=== PATIENT | female | born 1965 | race Caucasian/White ===

== ENCOUNTER 2017-05-29 17:29 | Inpatient (IN) ==
[2017-05-29 18:42] LABS: MANUAL DIFF NEEDED? NO
[2017-05-29 18:47] LABS: ALLEN TEST YES; BE 3.5 mmoll (-3.0-3.0); BLOOD TYPE ARTERIAL; DRAW SITE R RADIAL; METHB 1.1 % (0.0-1.5); O2(CT) 15.6 mL/dL (15.0-23.0); PCO2(98.6) 50 mmHg (35-45); PO2(98.6) 66 mmHg (60-100); SAMPLE BLOOD; SAO2 96.3 % (95.0-100.0); THB 12.9 g/dL (11.5-17.4); pH(98.6) 7.38 (7.35-7.45)
[2017-05-29 18:50] LABS: URINE CULTURE NEEDED? NO; URINE MICRO REVIEW NEEDED? NO; URINE SOURCE CLEAN CATCH
[2017-05-29 18:51] LABS: MODALITY ROOM AIR
[2017-05-29 18:56] LABS: BASO% 0.3 % (0.0-0.8); EOS# 0.23 X1000 (0.0-0.7); EOS% 3.8 % (0.0-10.0); HEMATOCRIT 39.4 % (42.0-52.0); HEMOGLOBIN 13.4 g/dL (14.0-18.0); IMM GRAN# 0.02 X1000 (0.0-0.04); IMM GRAN% 0.3 % (0.0-0.5); LYMPH# 1.66 X1000 (1.2-3.4); LYMPH% 27.2 % (20.5-51.1); MCH 30.5 PG (27-31); MCV 89.7 FL (81-99); MONO# 0.72 X1000 (0.11-0.59); MONO% 11.8 % (1.7-9.3); MPV 9.6 FL (7.4-10.4); NEUT% 56.6 % (42.2-75.2); PLT 280 X1000 (130-400); RBC 4.39 XMIL (4.7-6.1)
[2017-05-29 18:58] LABS: BILIRUBIN URINE NEGATIVE (NEGATIVE); BLOOD URINE NEGATIVE (NEGATIVE); COLOR YELLOW; GLUCOSE URINE NEGATIVE (NEGATIVE); LEUKOCYTES URINE NEGATIVE (NEGATIVE); NITRITE URINE NEGATIVE (NEGATIVE); PH URINE 6.5; PROTEIN URINE TRACE mg/dL (NEGATIVE); SP GRAVITY URINE 1.001; TURBIDITY URINE CLEAR (CLEAR); UROBILINOGEN URINE NORMAL (NORMAL)
[2017-05-29 18:59] LABS: UR EPITHELIAL CELLS <10 /HPF (<10); URINE BACTERIA NEGATIVE /HPF; URINE RBC <10 /HPF (<10); URINE WBC <10 /HPF (<10)
--- NOTE | 2017-05-29 19:04 | Diag Imaging Result Doc PS360 ---
EXAM: HEAD W/O CONTRAST TECHNIQUE: Dose reduction protocol was used. INDICATION: AMS COMPARISON: None. FINDINGS: There is a chronic lacunar infarct involving the left caudate head extending into the internal capsule. There is no definite acute infarct given the limited sensitivity of CT versus MRI. There is no discrete intracranial mass, mass effect, or intracranial hemorrhage. There is a subcutaneous nodule involving the posterior aspect of the neck on the left that probably represents a sebaceous cyst. Surrounding soft tissues and bony structures are essentially unremarkable, otherwise. IMPRESSION: Chronic changes as described. No evidence of acute intracranial pathology by CT. Electronically signed by Medardo Craven 05/29/2017 7:01 PM
[2017-05-29 19:07] LABS: INR 0.98; PROTIME 10.3 Seconds (9.2-11.7); PTT 31.5 Seconds (22.0-36.0)
[2017-05-29 19:21] LABS: UR AMPHETAMINES QUAL NONE DETECTED (NONE DETECT); UR BARBITUATES QUAL NONE DETECTED (NONE DETECT); UR BENZODIAZEPIN QUAL PRESUMPTIVE POSITIVE (NONE DETECT); UR CANNABINOIDS QUAL PRESUMPTIVE POSITIVE (NONE DETECT); UR COCAINE QUAL NONE DETECTED (NONE DETECT); UR METHADONE QUAL NONE DETECTED (NONE DETECT); UR OPIATES QUAL PRESUMPTIVE POSITIVE (NONE DETECT); UR OXYCODONE QUAL NONE DETECTED (NONE DETECT); UR PCP QUAL NONE DETECTED (NONE DETECT)
[2017-05-29] MEDS ORDERED: NICODERM PATCH TD ONE (19:52)
--- NOTE | 2017-05-29 19:52 | ED EKG INTERP ---
This chart was entered by Shana Gonzalez Scribe, acting as scribe for Stuart Cunha MD. EKG Interpretation - EKG Time of EKG reading by physician:: 17:39 EKG Read and Signed by:: Stuart Cunha EKG Interpretation (*Must complete 3 of following elements*): Normal Rate: 85 Rhythm: NSR with sinus arrhythmia Comments: Normal ECG This chart was documented by the indicated scribe, (Shana Gonzalez Scribe) and accurately reflects the services I performed and decisions made by me, Stuart Cunha MD, as attested by the provider's signature.
[2017-05-29 19:57] LABS: AGAP 14; ALBUMIN 4.3 g/dL (3.5-5.0); ALKALINE PHOSPHATASE 80 U/L (32-122); BUN 8 mg/dL (8-22); CALCIUM 9.6 mg/dL (8.8-10.2); CHLORIDE 78 mmol/L (98-107); CK PROFILE 174 U/L (24-204); COSMO 241; GOT 25 U/L (10-34); GPT 15 U/L (10-44); SODIUM 122 mmol/L (136-145); TCO2 28 mmol/L (25-35); TOTAL PROTEIN 7.3 g/dL (6.3-8.3)
--- NOTE | 2017-05-29 20:41 | PROVIDER DOCUMENTATION ---
This chart was entered by Shana Gonzalez Scribe, acting as scribe for Stuart Cunha MD. HPI-General Adult - General Chief Complaint: Altered Mental Status Stated Complaint: STROKE LIKE SX Time Seen by Provider: 05/29/17 18:20 Source: patient, family Allergies/Adverse Reactions: Patient Allergies Allergy/AdvReac Type Severity Reaction Status Date / Time Iodinated Contrast Media - Allergy Severe RASH Verified 08/13/15 09:05 Oral and Home Medications: Home Medication List Medication Instructions Recorded Confirmed Last Taken Type Hydrocodone/Acetaminophen [Lortab 1 each PO PRN PRN 05/13/14 07/11/14 07/11/14 05:00 History 10-325 mg Tablet] LISINOpril [Prinivil] 10 mg PO BID 05/13/14 07/11/14 07/10/14 05:00 History Metoprolol Succinate 100 mg PO DAILY 05/13/14 07/11/14 07/11/14 05:00 History Trazodone [Desyrel] 100 mg PO QHS 05/13/14 07/11/14 07/10/14 21:00 History Alprazolam [Xanax] 2 mg PO TID 07/10/14 07/11/14 07/11/14 05:00 History Oxycodone HCl/Acetaminophen 1 each PO Q4H PRN #0 tablet 07/12/14 Unknown Rx [Percocet 5-325 mg Tablet] - History of Present Illness -Gen Adult Nature of Presenting Problems: 51 Y/O M presents to ED with AMS. brought pt to ED stating increased confusion, stumbling more than usual. Pt denies all other complaints, states he has fallen, but denied headaches, numbness, weakness. Pt however states that he hasn't taken Blood pressure meds in 6 months, and states he smokes a pack a day. states increased over the past 2 weeks. Location of Pain/Injury: reports: none Pain Radiation: reports: no radiation Quality of Pain: reports: none Severity: reports: mild Onset/Duration: reports: other (2 weeks) Timing: reports: still present Context/Activities at Onset: reports: none Associated Symptoms: reports: denies symptoms Review of Systems - Adult - REVIEW OF SYSTEMS - ADULT Constitutional: denies: chills, fever Eyes: reports: no symptoms reported Ears, Nose, Mouth & Throat: reports: no symptoms reported Cardiovascular: reports: no symptoms reported Respiratory: reports: no symptoms reported Gastrointestinal: reports: no symptoms reported Genitourinary: reports: no symptoms reported Musculoskeletal: reports: no symptoms reported Integumentary: reports: no symptoms reported Neurological: reports: no symptoms reported Psychiatric: reports: no symptoms reported Endocrine: reports: no symptoms reported Hematologic/Lymphatic: reports: no symptoms reported Allergic/Immunologic: reports: no symptoms reported All Other Systems: Reviewed and Negative Past History - Adult - PAST MEDICAL HISTORY-ADULT Review of Records: reports: Old Records Reviewed, Nursing Assessment Review, Medications Reviewed, Social history reviewed & non-contributory. - SOCIAL HISTORY Smoking: cigarettes, greater than 1 pack/day Alcohol Use Frequency: never Living Situation: family Physical Exam-General - CONSTITUTIONAL General Appearance: alert, no apparent distress - EYES Eyes: pink conjunctivae, anisocoria - HEAD, EARS, NOSE, MOUTH & THROAT HENMT: moist mucous membranes, normal ENT inspection, TMs normal, pharynx normal - NECK Neck: full range of motion, supple, normal inspection - RESPIRATORY Respiratory: lungs clear, normal breath sounds - CARDIOVASCULAR Cardiovascular: regular rate, rhythm, no edema - CHEST (BREASTS) Chest/Breast: other (gynecomastia) - GASTROINTESTINAL (ABDOMEN) Abdominal Exam: non tender, soft - LYMPHATIC Lymphatic: no adenopathy - MUSCULOSKELETAL Back Exam: no CVA tenderness, no vertebral tenderness Extremity: non-tender, normal gait - SKIN Integumentary: normal turgor, warm/dry - PSYCHIATRIC Psych/Mental Status: normal mood/affect, normal thought content, normal thought process, oriented x 3 Progress - PLAN OF CARE/RESULTS Progress/Plan/Lab Results: Vital Signs - 8 hr 05/29/17 17:36 Temperature 98.3 F Pulse Rate 99 H Respiratory Rate 20 Blood Pressure 163/77 O2 Sat by Pulse Oximetry 98 Orders Category Date Time Status EKG [EKG] Stat Ther 05/29/17 17:43 Ordered Result Diagrams: 05/29/17 18:07 05/29/17 18:07 - CT/MRI 1 CT Study: Head Impression: Normal CT Results: NAD - CONSULTS/PCP/HOSPITALIST Notification #1 *Consult/PCP/Hospitalist*: Time Discussed: 20:28 Reason/Comments: Admit Consult Disposition: Admit (Admit Accepted) Departure - Departure Date of Disposition Decision: 05/29/17 Time of Disposition Decision: 20:40 DIAGNOSIS: Increased ammonia level, Elevated troponin Disposition: ADMITTED INPATIENT 09 Certified Medical Emergency: Emergent Condition: Fair Referrals and Follow-Ups: None,PCP [Primary Care Provider] - - Critical Care Note This patient required my direct & personal management of CC.: No This chart was documented by the indicated scribe, (Shana Gonzalez Scribe) and accurately reflects the services I performed and decisions made by me, Stuart Cunha MD, as attested by the provider's signature.
[2017-05-29] MEDS ORDERED: LACTULOSE PO ONE (22:26)
[2017-05-29] MEDS ORDERED: ZOFRAN IV PRN (23:06)
[2017-05-29] MEDS: LACTULOSE PO SCH (23:17)
[2017-05-29] MEDS: NS 1,000 ML IV SCH (23:17)
[2017-05-29] MEDS ORDERED: NARCAN IV ONE ×2 (23:23→23:50)
[2017-05-29] MEDS ORDERED: RELISTOR SUBQ ONE (23:23)
[2017-05-30] MEDS ORDERED: PREDNISONE PO ONE (00:28)
[2017-05-30] MEDS ORDERED: ZANTAC PO ONE (00:29)
[2017-05-30] MEDS ORDERED: BENADRYL PO ONE (00:29)
[2017-05-30] MEDS ORDERED: LOVENOX SUBQ SCH (00:30)
[2017-05-30] MEDS ORDERED: TORADOL IV PRN ×2 (01:50→02:56)
[2017-05-30 04:13] LABS: MANUAL DIFF NEEDED? NO
[2017-05-30 04:21] LABS: BASO% 0.3 % (0.0-0.8); EOS# 0.05 X1000 (0.0-0.7); EOS% 0.9 % (0.0-10.0); HEMOGLOBIN 13.5 g/dL (14.0-18.0); LYMPH# 0.78 X1000 (1.2-3.4); LYMPH% 13.3 % (20.5-51.1); MCH 30.8 PG (27-31); MCHC 34.6 g/dL (33-37); MCV 88.8 FL (81-99); MONO# 0.24 X1000 (0.11-0.59); MONO% 4.1 % (1.7-9.3); MPV 9.7 FL (7.4-10.4); NEUT% 81.4 % (42.2-75.2); PLT 265 X1000 (130-400); RBC 4.39 XMIL (4.7-6.1)
[2017-05-30 04:39] LABS: AGAP 12; BUN 7 mg/dL (8-22); CALCIUM 9.1 mg/dL (8.8-10.2); CHLORIDE 89 mmol/L (98-107); COSMO 255; POTASSIUM 4.4 mmol/L (3.5-5.1); SODIUM 127 mmol/L (136-145); TCO2 26 mmol/L (25-35)
--- NOTE | 2017-05-30 05:21 | EKG Report ---
Test Performed on : 05/29/2017 5:39:51 PM Test Reason : ams Blood Pressure : / mmHG Vent. Rate : 085 BPM Atrial Rate : 085 BPM P-R Int : 146 ms QRS Dur : 102 ms QT Int : 376 ms P-R-T Axes : 045 082 003 degrees QTc Int : 447 ms Normal sinus rhythm. with sinus arrhythmia. Normal ECG When compared with ECG of 13-MAY-2014 15:46, T wave inversion now evident in Inferior leads Unconfirmed Result
[2017-05-30 06:00] LABS: ALBUMIN 4.1 g/dL (3.5-5.0); ALKALINE PHOSPHATASE 76 U/L (32-122); DIRECT BILIRUBIN < 0.20 mg/dL (0.00-0.20); GOT 25 U/L (10-34); GPT 14 U/L (10-44); TOTAL PROTEIN 7.2 g/dL (6.3-8.3)
--- NOTE | 2017-05-30 06:33 | EKG Report ---
Test Performed on : 05/30/2017 05:47:47 AM Test Reason : elevated trops Blood Pressure : / mmHG Vent. Rate : 087 BPM Atrial Rate : 087 BPM P-R Int : 156 ms QRS Dur : 096 ms QT Int : 378 ms P-R-T Axes : 056 084 012 degrees QTc Int : 454 ms Sinus rhythm. with occasional premature ventricular complexes. Otherwise normal ECG When compared with ECG of 29-MAY-2017 17:39, premature ventricular complexes. are now present Confirmed by Lito Baxter MD ([id number]) on 05/30/2017 1:40:28 PM
--- NOTE | 2017-05-30 07:25 | Diag Imaging Result Doc PS360 ---
EXAM: ABDOMEN/PELVIS W/O CONTRAST - 05/29/2017 HISTORY: confusion, elevated ammonia TECHNIQUE: Without contrast per request the referring provider. Dose reduction protocol. COMPARISON: With contrast exam of 05/21/2014 FINDINGS: The visualized lung bases appear clear. There is been interval surgical resection of the previous right adrenal mass. The left adrenal gland is stable and unremarkable. There is some limitation of detail without administration intravenous contrast, but there are no acute abnormalities of the liver, spleen, or pancreas identified. The pancreatic tail is small which is stable. There are no calcified gallstones or pericholecystic inflammation identified. The bilateral kidneys are unremarkable. There is no renal stone or hydronephrosis identified. There is a nonspecific small retroperitoneal mesenteric lymph nodes. There are no substantial enlarged lymph nodes identified. There is no evidence of bowel obstruction. The appendix is unremarkable. There is no substantial bowel wall thickening identified. There is no free air, free fluid, or abscess identified. There is a 1.4 cm ovoid calcification the posterior pelvis which appears to be mobile but is otherwise stable in the questionable significance. There is no other acute pelvic abnormality identified. There are fractures of the left transverse processes of the second, third, and fourth lumbar vertebra noted. These fractures appear acute. There is no paraspinal hematoma identified. There are atherosclerotic calcifications noted. IMPRESSION: Status post interval right adrenalectomy. Acute fractures of left transverse processes of L2, L3, and L4. No other visible acute process. The monitoring tech radiologist provided primary results at 11:02 PM on 05/29/2017. Electronically signed by Abimael Vega 05/30/2017 7:23 AM
[2017-05-30] MEDS: ZANTAC PO SCH ×2 (07:36→11:03)
[2017-05-30] MEDS: BENADRYL PO SCH ×2 (07:36→11:04)
--- NOTE | 2017-05-30 07:41 | Diag Imaging Result Doc PS360 ---
CHEST-PORTABLE - 05/29/2017 INDICATION: elevated trop TECHNIQUE: COMPARISON: 07/11/2014 FINDINGS: Stable calcified granulomas in the right lung base. The lungs are normally expanded and clear. Heart size and mediastinal contours are normal. No pneumothorax or pleural effusion. IMPRESSION: Negative exam. Electronically signed by Jeremy Odell 05/30/2017 7:39 AM
[2017-05-30] MEDS ORDERED: PREDNISONE PO SCH (08:00)
--- NOTE | 2017-05-30 08:41 | Diag Imaging Result Doc PS360 ---
EXAM: ANGIOGRAM/PULMONARY ARTERIES - 05/30/2017 HISTORY: r/o PE TECHNIQUE: With intravenous contrast. Dose reduction protocol. Multiple axial images and reformatted 3-D rotating MIP images are obtained. COMPARISON: CT thorax of 05/14/2014 FINDINGS: There are no filling defects identified in the pulmonary arteries. There is a 3 mm nodular density at the anterior right upper lobe which is stable. Lungs otherwise appear grossly clear. There is no consolidation, pleural effusion, or pneumothorax identified. 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 There are some nonspecific small noncalcified mediastinal lymph nodes similar to the previous exam. There is no indication of aortic dissection. IMPRESSION: No evidence of pulmonary embolism. No pneumonia. Electronically signed by Abimael Vega 05/30/2017 8:39 AM
[2017-05-30] MEDS: LACTULOSE PO SCH ×4 (09:09→16:50)
[2017-05-30] MEDS: NS 1,000 ML IV SCH ×2 (09:11→19:27)
--- NOTE | 2017-05-30 09:29 | HISTORY AND PHYSICAL ---
PRIMARY CARE PROVIDERS: Drs. Riley and Elias in [place]. UROLOGIST: Dr. Saldaña. CHIEF COMPLAINT: Altered mental status. HISTORY OF PRESENT ILLNESS: Mr. 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 His is at the bedside. They state that over the past 2 weeks has had increased confusion, has stumbled and even falling 4 nights ago. He reportedly has not taken his blood pressure medications in the past 6 months. The patient's father at some point recently, and had a lot of [place] and Xanax tablets which the patient has started taking as he has no primary care provider at this point. He also smokes a pack of cigarettes per day and has for many years. OTHER PAST MEDICAL HISTORY: This includes anxiety, arthritis, cataracts, hypertension, hyperlipidemia and insomnia. INITIAL LABORATORY DATA: This was collected in the emergency room and showed a sodium of 122, an ammonia of 128 and a troponin of 0.116. A non contrasted CT of the abdomen was ordered related to the patient having an elevated ammonia, but normal liver enzymes. Repeat ammonia and troponin were also at that point ordered. During the interview the patient stated that over the past 30 years she has gone roughly 17 years without injections, and then has not had a testosterone injection in the last 6 months. Has only had 1 testosterone injection which was 2 weeks ago which I believe was 200 mg of testosterone cypionate. The patient also contributes that he has not had a bowel movement in the past 3 days or so. The patient will be admitted for further evaluation and treatment while additional testing is done. PAST MEDICAL HISTORY: 1. Gender dysphoria. 2. Anxiety. 3. Arthritis. 4. Cataracts. 5. Hypertension. 6. Insomnia. 7. Hyperlipidemia. PREVIOUS SURGICAL HISTORY: 1. Right kidney adrenal mass. 2. Cataract surgery. 3. Bladder reconstruction. SOCIAL HISTORY: Patient lives at home with his . He started transitioning from female to male at roughly 28 years of age. He is disabled related to knee pain. Smokes 1 pack of cigarettes per day, but denies alcohol or illicit drug use or abuse. However, toxicology screen was positive for cannabis which he later stated that he takes nightly related to back pain. FAMILY HISTORY: Mother at 39 from liver and kidney disease. Father had liver disease as well. ALLERGIES: IV and oral contrast. HOME MEDICATIONS: No home medications listed at this time. The patient states that he has not taken home medications, other than testosterone around 6 months. He has been taking [place] and Xanax, which apparently was not described to him. REVIEW OF SYSTEMS: Fourteen point review of systems conducted with the patient. Pertinent positives listed above in the HPI. All other systems reviewed and found to be negative. PHYSICAL EXAMINATION: VITAL SIGNS: Temperature 97.8 degrees, pulse 69, respirations 18, blood pressure 110/62, oxygen saturation 96% on room air. GENERAL: Slightly lethargic-appearing, 51-year-old male lying on the ER stretcher. His is at bedside. Patient answers all questions appropriately, however does veer off track, but is oriented to person, place, situation and time. No acute distress. HEENT: Head is atraumatic, normocephalic. Pupils are 2 cm, sluggishly reactive to light, equal and round. Extraocular eye movements are intact. Sclerae is anicteric. Conjunctivae is pink. Oral mucosa moist. NECK: Supple. No JVD. No thyromegaly. Trachea is midline. CARDIAC: S1, S2 appreciated. No murmurs, gallops, rubs. LUNGS: Clear to auscultation bilaterally. No rhonchi, wheezes or rales. Symmetrical rise and fall of respirations. ABDOMEN: Soft, nondistended, nontender, but protuberant. Bowel sounds hypoactive all 4 quadrants. Midline scar from previous surgery noted. No pulsatile mass. No organomegaly. EXTREMITIES: Trace lower extremity edema bilaterally, nonpitting, with 2+ pedal pulses bilaterally. GENITOURINARY: No bladder distention. Otherwise deferred. BACK: C-spine tenderness noted in the lumbar spine with a left-sided hematoma. NEUROLOGICAL: Mildly lethargic. Answers all questions appropriately. Again does get sidetracked in conversation. Cranial nerves 2-12 appear to be grossly intact. DIAGNOSTIC DATA: CT of the head shows chronic changes including a chronic lacunar infarct in the left caudate head extending into the internal capsule. CT of the abdomen and pelvis showed previously mentioned surgical removal of the adrenal gland on the right side, constipation throughout the colon, and an acute left-sided L2-L4 fracture to the transverse process. Chest x- ray shows cardiomegaly. LABORATORY DATA: WBC 6.11, hemoglobin 13.4, hematocrit 39.4, platelet count 280. Coagulations within normal limits. D-dimer 0.34. ABG: A pH 7.38, pCO2 50, PO2 66, bicarbonate 27.40 on room air. Sodium 122, potassium 4, chloride 78, carbon dioxide 28, BUN 8, creatinine 0.8, glucose 114. AST 25, ALT 15. Ammonia level on arrival 128; ammonia level 3 hours later at recheck 45 with no treatment. Troponin on arrival 0.116; on recheck 3 hours later 0.127. CK 174 on arrival; 3 hour recheck 138. Urine unremarkable. Toxicology screen positive for opiates, benzodiazepines and cannabis. ASSESSMENT AND PLAN: 1. Toxic encephalopathy, likely secondary to narcotic and opiate abuse. Cannot rule out encephalopathy secondary to elevated ammonia as 1 test was elevated and 1 was within normal limits. Lactulose was given on arrival to the medical floor. This will dual treat for constipation. The patient was subsequently given Narcan as well as Relistor , which did have a positive affect on her somnolence as well as promote bowel movements. Will recheck ammonia level in the morning; if two consist ammonia levels are within normal limits , the first was likely a false positive as the patient did not have any noted liver disease and has normal liver function tests, as well as CT exam of the liver being normal. 2. Hyperammonemia. See #1. Other causes of elevated ammonia without liver disease have been considered. Constipation is known to raise ammonia levels. Patient has not had a viral illness and taken aspirin of any type. We will recheck in morning. 3. Elevated troponin. Rule out acute coronary syndrome and pulmonary embolism. Even though the D-dimer was negative, the electrocardiogram did show some inverted T-waves in the inferior leads. The troponins have trended up. The patient is allergic to intravenous and oral contrast. We will give prednisone and Zantac and Benadryl for premedication , and order a computed tomography angiography of the thorax tomorrow afternoon. Will order bilateral lower extremity Dopplers to rule out deep vein thrombosis. We will consult cardiology as he definitely has risk factors for acute coronary syndrome including testosterone use, Adderall use, tobacco use, untreated hypertension and hyperlipidemia for 6 months. Will give Lovenox 1 mg/kg every 12 hours and order echocardiogram in morning. 4. Hyponatremia. Will order osmolality and urine electrolytes. Start normal saline at 100 mL an hour. We will recheck sodium level in morning. Patient may be chronically hyponatremic related to her removal of an adrenal mass. 5. Constipation likely narcotic related as noted above. Relistor was given, as well as lactulose being given. 6. Acute L2 through L4 fractures on the left side of the lumbar spine related to fall. We will give Toradol for pain management at this time. 7. Gender dysphoria, aware. Have ordered testosterone, estradiol, FSH and LH studies. Further recommendations per patient's clinical course. Dictated by DUANE Ospina for Leonid Valdez MD cc: DUANE Ospina MD Caswall C. Harrigan, MD Verne H. Webster, MD William E. Hughes, MD William D. Denney, MD pt examined, agree with above APENOT MTDD
[2017-05-30] MEDS ORDERED: LOPRESSOR PO ONE (10:15)
[2017-05-30] MEDS: PRINIVIL PO SCH ×2 (11:03→20:25)
[2017-05-30] MEDS: NORCO-7.5 PO PRN ×2 (11:09→19:31)
[2017-05-30] MEDS: XANAX PO SCH ×2 (11:09→20:25)
--- NOTE | 2017-05-30 11:45 | CONSULTATION ---
DATE OF CONSULTATION: 05/30/2017 Cardiology was consulted for abnormal troponin. The patient admitted with multiple medical problems as listed below. Patient is a 51-year-old transsexual patient who was born female, identifies himself as a male. Started taking testosterone roughly 28 years of age. The patient for the past 2 weeks was noted to be confused, was stumbling and falling frequently. He had not taken his blood pressure medications for the last 6 months. The patient had a lot of [place] and Xanax and he smokes a pack of cigarettes a day and has been for many years and he was subsequently admitted and noted to have multiple medical problems, was admitted with toxic encephalopathy, hyperammonemia, elevated troponins, hyponatremia. Had a fracture of acute L2-L4 fractures and this morning he says he feels better. As far as cardiac history is concerned he has had occasional episodes of chest pain especially when he argues with his . There was no exertional component of chest pain. There is no orthopnea or paroxysmal nocturnal dyspnea. PAST MEDICAL HISTORY: Hypertension, cataracts, arthritis, anxiety, hyperlipidemia, insomnia, right kidney adrenal mass, cataract surgery, bladder reconstruction. SOCIAL HISTORY: Patient lives with his . He is transitioning from female to male at 28 years of age. Smokes a pack of cigarettes a day. Denies alcohol or illicit drug abuse. FAMILY HISTORY: Mother at 39 with kidney and liver disease. ALLERGIC: To IVP contrast. HOME MEDICATIONS: Home medications not listed. REVIEW OF SYSTEMS: GI: There is no hematemesis or melena. Central nervous system: Complains of back pain but no focal weakness to suggest a CVA or TIA. Genitourinary: There is no dysuria or hematuria. PHYSICAL EXAMINATION: Vital Signs: Blood pressure when he came in was 110/62. Today it is 170/80. Cardiovascular System: Normal jugular venous pressure. First and second heart sounds were heard. There was no S3 gallop. Respiratory System: Normal air entry. There is no crepitations or rhonchi. Abdomen: Soft, nontender. There was no guarding or rigidity. Bowel sounds were heard. Central nervous system: Alert, oriented, moving extremities. LABORATORY EXAMINATION: Patient has acute L2-L4 fracture. Patient has hyperammonemia. Patient was hyponatremia with a sodium of 122, potassium 4, chloride 78, BUN 8, creatinine 0.8 and troponin was abnormal at 0.11 and 0.116. CK-MBs were negative and the most recent troponin is normal at 0.049. Electrocardiogram revealed normal sinus rhythm, nonspecific T-waves or changes were noted in lead 2 and 3. The urine tox screen revealed positive for opiates, cannabinoids and amphetamines. ASSESSMENT AND PLAN: The patient is a 51-year-old, transsexual patient who is admitted with altered mental status, multiple electrolyte imbalance and significant frequent falls in the past. Has acute L2-L4 fracture. From a cardiac standpoint. 1. We have restarted him on beta-blockers and lisinopril for control his blood pressure. 2. We will get an echocardiogram to assess cardiac and valvular function. 3. As far as troponin is concerned it is unlikely this is related to his cardiac. He was ruled out for pulmonary embolism and he has had multiple fractures as well as chronic falls. I am not sure whether it could be related to that. Regardless he has had atypical chest pains. We will set him up to undergo a Lexiscan Cardiolite stress test to rule out ischemia. Thank you for the consult. We will follow hospital course. cc: Jarad Jaeger MD
--- NOTE | 2017-05-30 13:14 | ECHO REPORT ---
ORDER DATE: 05/30/2017 INDICATION FOR STUDY: Elevated troponins. Tobacco use. FINDINGS: 1. Right atrium is normal in size at 3.8. 2. Mild tricuspid regurgitation. RV systolic pressure of 23. 3. Normal RV size and systolic function. 4. Mild pulmonic insufficiency. 5. Mild left atrial enlargement at 4.3 cm. 6. No mitral prolapse. There does appear to be moderate and possibly severe mitral regurgitation. This is a somewhat eccentric jet. 7. The left ventricle is upper limits of normal size with an end-diastolic dimension of 5.7. Normal wall thicknesses with a posterior and interventricular septal wall thickness 1.0 cm each. There is mild reduction in LV systolic function with an estimated EF of 45% to 50%. This was a very difficult study with limited endocardial border resolution. There does appear to be some hypokinesis of the mid and basal inferior lateral wall. 8. Aortic valve opens well. No evidence of stenosis or insufficiency. 9. Aorta appears normal in visualized segments. 10. No pericardial effusion seen. cc: MD Neptali Putnam CRNP
[2017-05-30] MEDS: MORPHINE IV PRN ×3 (13:44→22:11)
--- NOTE | 2017-05-30 14:27 | PROGRESS NOTE ---
DATE: 05/30/2017 SUBJECTIVE: Today Mr. Lopes refers to be doing relatively fine. He said he is hurting at his back. Mr. Lopes got admitted early yesterday because of progressively getting weak and cognitive decline. OBJECTIVE: Vital signs: Blood pressure is 139/103, pulse of 95, respirations 17, temperature is 98.0 degrees. General: Mr. Lopes 51 years old transgender male. He is in bed, not seemingly distress. HEENT: Mucosa is pink and moist. Anicteric. Acyanotic. Neck: Supple. Chest: Good air entry bilaterally. No crepitations. No rhonchi. Cardiovascular: Regular rate and rhythm. There is no murmurs, no rubs, no gallops. Abdomen: Soft, nontender. Extremities: No pedal edema. 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 LABORATORY DATA: WBC is 5.87, hemoglobin is 13.5, platelet count of 265,000. Chemistry is reviewed. Sodium is 127, potassium is 4.4, chloride is 89, bicarb is 26. Troponins have gradually been up this morning. It is normalized to 0.049. EKG shows sinus rhythm with mild T-wave changes in the inferior leads and also some PVC. A CT scan of the head was unremarkable. A CT scan of the abdomen and pelvis showed status post interval right adrenalectomy, acute fractures of the left transverse processes of L2-4 , CTA was unremarkable. ASSESSMENT: 1. Altered mental status with cognitive decline. I think this is due to prescription drug abuse. According to the patient he has been using opioids and benzodiazepines since age 16 and he also got supply after his daddy . He took all the opioids and benzodiazepines that the father was supposed to have been on for the past 2 years. He has been using that since he has not been able to go and see his PCPs. 2. Hyponatremia seems to be a multifactorial, may be medication induced with dehydration. Patient is on normal saline, seems to be improving so will continue with this for now and repeat his BMP for later on today. 3. Troponin elevation with mild T-waves inversion in the inferior leads suspicious for underlying coronary artery disease. The patient is being evaluated by Cardiology. 4. L2-4 transverse fractures. Patient will be on some pain medications. We will also consult orthopedics to evaluate him. 5. Hypertension. 6. Prescription drug abuse in the past. 7. Transgender sexuality.. cc: John Avila MD MTDD
[2017-05-30 15:27] LABS: CALCIUM 9.3 mg/dL (8.8-10.2); POTASSIUM 5.2 mmol/L (3.5-5.1)
[2017-05-30] MEDS ORDERED: SAMSCA PO ONE (16:15)
[2017-05-30 23:02] LABS: AGAP 15; BUN 5 mg/dL (8-22); CALCIUM 9.2 mg/dL (8.8-10.2); CHLORIDE 92 mmol/L (98-107); COSMO 256; POTASSIUM 4.3 mmol/L (3.5-5.1); SODIUM 128 mmol/L (136-145); TCO2 21 mmol/L (25-35)
[2017-05-31] MEDS: NORCO-7.5 PO PRN ×2 (00:33→08:39)
--- NOTE | 2017-05-31 05:32 | EKG Report ---
Test Performed on : 05/31/2017 02:42:29 AM Test Reason : No Order in [facility] Blood Pressure : / mmHG Vent. Rate : 077 BPM Atrial Rate : 077 BPM P-R Int : 154 ms QRS Dur : 100 ms QT Int : 400 ms P-R-T Axes : 046 082 006 degrees QTc Int : 452 ms Poor data quality, interpretation may be adversely affected Normal sinus rhythm. with sinus arrhythmia. Cannot rule out Inferior infarct , age undetermined Abnormal ECG No previous ECGs available Confirmed by Lito Baxter MD ([id number]) on 05/31/2017 10:35:41 AM
[2017-05-31] MEDS ORDERED: CORTROSYN IV ONE (06:00)
[2017-05-31 06:19] LABS: HEMATOCRIT 41.4 % (37.0-47.0); HEMOGLOBIN 13.9 g/dL (12.0-16.0); MCH 30.3 PG (27-31); MCHC 33.6 g/dL (33-37); MCV 90.4 FL (81-99); RBC 4.58 XMIL (4.2-5.4)
[2017-05-31 06:28] LABS: AGAP 17; BUN 4 mg/dL (8-22); CALCIUM 9.5 mg/dL (8.8-10.2); CHLORIDE 94 mmol/L (98-107); COSMO 270; MAGNESIUM 1.5 mg/dL (1.5-2.7); POTASSIUM 4.2 mmol/L (3.5-5.1); SODIUM 136 mmol/L (136-145); TCO2 25 mmol/L (25-35)
[2017-05-31 06:59] LABS: INR 1.01; PROTIME 10.6 Seconds (9.2-11.7)
--- NOTE | 2017-05-31 07:29 | EKG Report ---
Test Performed on : 05/31/2017 06:43:56 AM Test Reason : cp Blood Pressure : / mmHG Vent. Rate : 091 BPM Atrial Rate : 091 BPM P-R Int : 138 ms QRS Dur : 096 ms QT Int : 368 ms P-R-T Axes : 053 081 002 degrees QTc Int : 452 ms Normal sinus rhythm. Normal ECG When compared with ECG of 31-MAY-2017 02:42, (Unconfirmed) No significant change was found Confirmed by Lito Baxter MD ([id number]) on 05/31/2017 10:35:47 AM
[2017-05-31] MEDS ORDERED: BENADRYL PO ONE ×2 (08:21→08:23)
[2017-05-31] MEDS ORDERED: PREDNISONE PO ONE (08:22)
[2017-05-31] MEDS ORDERED: PEPCID PO ONE (08:23)
[2017-05-31] MEDS: LACTULOSE PO SCH ×2 (08:28→10:48)
[2017-05-31] MEDS: XANAX PO SCH (08:28)
[2017-05-31] MEDS: PRINIVIL PO SCH (08:28)
[2017-05-31] MEDS ORDERED: LOVENOX SUBQ SCH (09:00)
[2017-05-31] MEDS ORDERED: HEPARIN 1000 UNITS/NS 2,000 UNIT/1,000 ML IV.SOLN ONE (09:33)
[2017-05-31] MEDS ORDERED: NS 1,000 ML ONE (10:28)
[2017-05-31] MEDS ORDERED: CLAVE PUMP SET NO FILTER 12260 ONE (10:28)
[2017-05-31 10:41] LABS: HEPATITIS PROFILE ACUTE SEE COMMENTS
[2017-05-31] MEDS ORDERED: VERSED ONE (11:11)
[2017-05-31] MEDS ORDERED: DILAUDID ONE (11:11)
[2017-05-31] MEDS ORDERED: NITROGLYCERIN ONE (11:15)
--- NOTE | 2017-05-31 11:31 | PROGRESS NOTE ---
DATE: 05/31/2017 SUBJECTIVE: Today, Mr. Lopes refers to be doing okay, but, according to the , he has been very repetitive, saying "I'm okay, I'm okay." The nurses also referred that he has been having some hallucinations, as well. OBJECTIVE: Vital signs: Blood pressure is 147/72, pulse 104, respirations 18, temperature is 99.7 degrees. General: Mr. Lopes is a 51-year-old male. He is in bed, not seemingly distressed. HEENT: Mucosa is pink and moist. Anicteric. Acyanotic. Neck: Supple. Chest: Good air entry bilateral. No crepitations. No rhonchi. Cardiovascular: Regular rate and rhythm. Abdomen: Soft. Extremities: No pedal edema. Central Nervous System : Patient is awake, alert ,continues to be very repetitive. LABORATORY DATA: Sodium is 136, potassium is 4.2, chloride is 94, bicarbonate is 25. The cortisol response was completely normal. ASSESSMENT: 1. Altered mental status secondary to medication side effects. 2. Hallucinations, likely from opioids and medication withdrawal. 3. Hyponatremia, improved. 4. Elevated troponin with electrocardiographic changes. Patient has been evaluated by Cardiology and the plan is to do a left heart catheterization today. 5. L2-4 transverse fractures, stable. 6. Hypertension. 7. Prescription drug abuse in the past. 8. Transgender sexuality. Today, we will discontinue the IV fluids. The patient got a dose of Samsca yesterday and that seems to have improved his sodium. He is going for a left heart catheterization, after which we will follow up with the results. I have reviewed his current medications. We have started him on low-dose alprazolam and also his home [place], so he should not be withdrawing from these medications. We will reassess his mentation later on today and give further recommendations. cc: John Avila MD MTDD
--- NOTE | 2017-05-31 12:31 | CARDIAC CATH REPORT ---
PROCEDURE NAME: - INDICATION FOR THE PROCEDURE: [id number] myocardial infarction . PROCEDURES PERFORMED: 1. Selective coronary angiography. 2. Left ventriculogram. 3. Left heart catheterization. PROCEDURE IN DETAIL: Mr. Lopes was brought to the catheterization laboratory in a fasting state. Informed consent was obtained. Prepped in usual fashion. Anesthetized over the right radial artery after Mukul test was proved adequate. A 5-[place] sheath was placed. Catheters were introduced. Hemodynamic measurements were made in the ascending thoracic aorta. Coronary angiography was performed in multiple views using JL3.5 and JR4 diagnostic catheters. Left heart catheterization and left ventriculogram was performed using the JR4. At the conclusion of the procedure, all sheaths and catheters were removed. TR band was left inflated at 10 mL of air. Good capillary refill. Good hemostasis. No apparent complications. 70 mL of IV contrast and 5 mL of blood loss. FINDINGS: 1. The left main has a distal 10% lesion. 2. Left anterior descending appears to have a 70% to 80% proximal lesion at the takeoff of a diagonal as well as septal. It is somewhat difficult to see in that area. The remainder of the vessel in the mid and distal vessel has mild luminal irregularities. There is a relatively large diagonal vessel with mild luminal irregularities. 3. Circumflex originates from the left main. It was a nondominant vessel. Mild luminal irregularities noted throughout its course. 4. Right coronary artery originated from the right coronary cusp and it was occluded proximally. The remainder of the vessel was visualized via [id number]-bh-niacc collaterals. Mild luminal irregularities were noted throughout this vessel. 5. Aortic blood pressure is 183/87. 6. Left ventricular pressure is 189/9 with an LVEDP of 18. 7. Left ventriculogram was somewhat difficult. EF was estimated at around 50%. Suggestion of distal anterior wall hypokinesis. ASSESSMENT: Mr. Lopes is a 51-year-old presenting with a [id number] myocardial infarction. PLAN: There does appear to be the suggestion of a proximal left anterior descending lesion of 70% to 80% in severity. We have spoken to [facility] and they will bring the patient over for transfer and assessment of this, and consideration for PCI plus or minus FFR. cc: Ronnie Herbert MD
[2017-05-31 12:38] VITALS: BP 161/103
[2017-05-31] MEDS ORDERED: NS 1,000 ML IV SCH (12:51)
--- NOTE | 2017-05-31 13:53 | Diag Imaging Result Document ---
PROCEDURE NAME: MYOCARDIAL PERFU SCAN, REST - 05/30/2017 Resting myocardial perfusion scan. 28.6 mCi of Cardiolite was injected. Gated rest and stress images were obtained in standard views. Images revealed a left ventricular ejection fraction of 59%. There is inferior wall hypokinesis. There is a large size defect in the inferior wall and in the inferolateral wall. The patient was taken to the cardiac catheterization laboratory. Stress images were not performed. CONCLUSIONS: Resting images reveal large-sized defect in the inferior and in the inferolateral wall. Left ventricular ejection fraction 59%. Inferior wall hypokinesis. cc: Jarad Jaeger MD
--- NOTE | 2017-06-01 11:45 | DISCHARGE SUMMARY ---
ADMISSION DATE: 05/30/2017 DISCHARGE DATE: 05/31/2017 PATIENT TRANSFERRED TO [facility].: CONSULTATIONS: 1. Cardiology with Dr. Jaeger. PERTINENT PROCEDURES: 1. Head CT, chronic showed no evidence of acute intracranial pathology. 2. Abdominal abdomen pelvis CT showed status post interval right adrenalectomy, acute fractures of left transverse process L2, L3 and L4. No other r visible acute process. 3. Pulmonary arteriogram showed no evidence of PE, no pneumonia. 4. Echocardiogram showed an EF of 45-50%. There appeared to be some hypokinesis at the mid and basal inferior lateral wall. 5. Resting perfusion scan revealed a large size defect in the inferior and inferior lateral wall. EF estimated around 59% with inferior wall hypokinesis. 6. Left heart catheterization performed by Dr. Ronnie Herbert. Suggestion of proximal left anterior descending lesion of 70%-80% in severity, DISCHARGE DIAGNOSES: 1. Non STEMI. The patient underwent a normal resting myocardial perfusion scan and they proceeded with a left heart catheterization that showed suggestion of proximal left anterior descending lesion of 70-80% in severity. Dr. Ronnie Herbert spoke with [facility]. The patient is being transferred for assessment and consideration of PCI, plus or minus fractional flow reserve. 2. Toxic metabolic encephalopathy with cognitive decline, possibly secondary to prescription drug use. The patient uses opiates and benzo a since the age of 16 as well as using a supply that he had gotten after his father . 3. Hyponatremia with improvement after a dose of Samsca. 4. L2 through L4 transverse fractures. The patient did have IV morphine as well as p.o. Eastham available p.r.n. as well as an orthopedic consult;however, patient due to his more emergent issues, is being transferred to [facility] for left heart catheterization with possible PCI. 5. Hypertension. 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 Started taking testosterone treatments at roughly 28 years of age. Initial report was taken from his who was at the bedside. Stated that over the past 2 weeks had had increased confusion, had been stumbling and even falling 4 nights prior. He had reportedly not been taking his blood pressure medicines in the last 6 months. The patient's father had and at some point, he had been taking his Eastham and Xanax. He also smokes a pack of cigarettes per day for many years. Other past medical history includes anxiety , arthritis, cataracts, hypertension, hyperlipidemia and insomnia. Laboratory data in the ED showed a sodium of 122, ammonia of 128, troponin 0.116, and noncontrasted CT of the abdomen was ordered related to the elevated ammonia but normal liver enzymes. Repeat ammonia and troponins were ordered at that point, so the patient was admitted for toxic metabolic encephalopathy secondary to narcotic and opiate abuse. He was given lactulose as well as Narcan and Relistor. His troponins did trend up. He was started on full dose Lovenox. For his echocardiogram as well as a cardiology consult, he underwent a resting Lexiscan that was abnormal and then a left heart catheterization with Dr. Ronnie Herbert that showed proximal left anterior descending lesion of 70% to 80 % in severity. They had spoken with [facility] and they will be transferring the patient for and consider PCI plus or minus fractional flow reserve. As of note, the patient was admitted to the ICU. He was having hallucinations likely from opiates and medication withdrawal again. Again, he was noted to have L2 through L4 transverse fractures. We did put in a consult orthopedics given his transfer to [place]. He was not evaluated for this, and for his hyponatremia, he was started on Samsca with improvement. DISPOSITION: Patient is transferred to [facility] for a possible PCI with FFR. DISCHARGE TIME: 30 minutes. Dictated by DUANE Drake for John Avila MD cc: John Avila MD [facility]
--- NOTE | 2017-06-05 07:36 | Extremity Venous Study ---
PROCEDURE NAME: Venous U/S Bilateral Legs - 05/30/2017 REFERRING PHYSICIAN: Dr. Valdez. INTERPRETING PHYSICIAN: Jluis Lester MD. UNDERWRITING DIRECTOR: Brian. INDICATIONS: The patient has shortness of breath. DESCRIPTION OF PROCEDURE: Bilateral lower extremity venous images were accomplished. The common femoral, superficial femoral, deep femoral, popliteal, posterior tibial, peroneal, and greater saphenous are imaged. Doppler was used to evaluate the veins for spontaneity, phasicity, respiratory excursion, and distal augmentation. All veins are compressible. No intraluminal clot is seen. There is a small left popliteal cyst noted. INTERPRETATION: No evidence of deep or superficial venous thrombosis in the lower extremity veins identified. cc: MD Neptali Yeager CRNP
== END 2017-05-31 14:35 | disposition short-term general hospital (02) ==
LOC: ED 17:29 → EDSEX 22:37 → 3S 22:37 → SUATTDRO 22:37 → ICU 05-30 01:46
PROVIDERS: ATTEND Internal Medicine